=== PATIENT | female | born 1980 | race Caucasian/White ===

== ENCOUNTER 2016-07-27 07:52 | Observation (INO) | payer OTHER ==
[~2016-07-27] VITALS: Ht 160 cm; Wt 70.3 kg
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
--- NOTE | ~2016-07-27 | O ---
[facility] [place] [address] OPERATIVE REPORT Name: CHRIST HERNANDEZ Room #: 404-P [facility] Binu Pascual#: [id number] Admission: 07/27/16 Attend Phys: Shady Cuellar MD Discharge: 07/27/16 Date of : 84 Report #: [id number] THIS REPORT FOR: //name// CC: AILEEN physician/PCP Shady Cuellar DATE OF SERVICE: 07/27/2016 PREOPERATIVE DIAGNOSIS: Right breast abscess. POSTOPERATIVE DIAGNOSIS: Right breast abscess. PROCEDURE: Incision and drainage of right breast abscess. ANESTHESIA: General endotracheal anesthesia. ESTIMATED BLOOD LOSS: 3 mL. IV FLUIDS: See anesthesia record. FINDINGS: Approximately 4 cm abscess per the right inferomedial breast located at approximately the 4 o'clock position 4 cm from the areolar border. The pocket measured approximately 4 cm deep and was consistent with an infected sebaceous cyst. Copious purulence was identified. SPECIMENS TO PATHOLOGY: 1. Skin and soft tissue of right breast lesion for pathology. 2. A culture and sensitivity for aerobic and anaerobic sent off for microbiologic analysis. 3. Cyst wall. INDICATION FOR PROCEDURE: The patient is a 35-year-old female patient with a 3-day history of significant pain and swelling at the inferomedial aspect of the right breast. She was seen in the Emergency Department and ultrasound was obtained, which demonstrated a size abscess cavity in the right breast. This had not had begun this drain spontaneously. General surgery was consulted and detailed discussion of risks and benefits of incision and drainage in the operating room setting was held with the patient. Risks included bleeding, pain, infection, recurrence and need for future procedure, need for further workup to evaluate the lesion even following incision and drainage after the wound is healed. All questions were answered to this patient's satisfaction. Written informed consent was obtained. DESCRIPTION OF PROCEDURE: The patient was brought to the operating room and placed in a supine position. Timeout was taken to verify the patient's identity and to plan the procedure. SCDs were in place on the lower extremities [address] [address] OPERATIVE REPORT Name: CHRIST HERNANDEZ Room #: 404-P [facility] Binu Pascual#: [id number] Admission: 07/27/16 Attend Phys: Shady Cuellar MD Discharge: 07/27/16 Date of : 84 Report #: [id number] bilaterally. Preoperative antibiotics were administered. Anesthesia was induced. The patient was intubated. Right breast was sterilely prepped and draped in standard fashion. Examination demonstrated the large abscess at the 4 o'clock position located approximately 4 cm from the areolar border. Local anesthetic was infiltrated and an incision was made along the inferomedial crease in a circumareolar direction. This was carried through skin and subcutaneous tissue. The abscess pocket was opened and copious malodorous purulence was visualized. Cultures were obtained. The wound was then digitally explored to break loculations. A cyst wall was identified lying in the cavity, which gave evidence that this likely was an infected cyst of some type. The cyst wall was removed as much as possible without causing undue bleeding. This was taken down using a Shital clamp as well as abraded away from the wall of the abscess cavity using a laparotomy sponge. The wound was then irrigated with copious sterile saline and suctioned clear. The cyst wall had been passed off as its own specimen. A ___ of skin and soft tissue along the edge of the wound was obtained as a specimen for pathology to evaluate for potential malignant involvement. Electrocautery was utilized for hemostasis at the wound edges. The wound was then packed with 2 inch Nu Gauze. Sterile dressing was applied superficially. Further local anesthetic had been infiltrated along the edges of the wound as well to aid with postoperative discomfort. Once sterile dressing had been applied, the case was ended, all instrumentation had been extracted and accounted for. All counts were correct per nurse report. The patient was extubated and taken to the postoperative care unit in stable condition. By: 25 51 Shady Cuellar MD /radha
--- NOTE | ~2016-07-27 | S ---
[facility] [place] [address] SURGICAL PATH RPT PROCEDURE Name: CHRIST RIVERA Room #: 404-P [facility] Binu Pascual#: [id number] Admission: 07/27/16 Date of : 84 Discharge: 07/27/16 Report #: [id number] Path Case #: [id number] PATHOLOGY REPORT COLLECTION DATE: 07/27/2016 RECEIVED DATE: 07/27/2016 SUBMITTING PHYS: Dr. Shady Cuellar OTHER PHYS: SPECIMEN(S) RECEIVED: A.Skin and soft tissue right breast lesion B.Right breast cyst capsule * * * * * * * * * * * * FINAL DIAGNOSIS: A. Skin and soft tissue right breast lesion, punch biopsy: - Moderate perivascular chronic inflammation and focal acute inflammation in the deep subcutaneous tissue. - Overlying skin showing reactive changes. - Negative for malignancy. B. Right breast cyst capsule, removal: - Dense fibrous tissue compatible with cystic space along with acellular keratinous debris. - Negative for atypia or malignancy. COMMENT: Focal collection of marked acute inflammatory cells is present in the deepest part of the punch biopsy tissue. Clinical history of breast abscess is noted. Part A Co-review: Dr. Lorrie John (IUV:mgr; d/t: 07/28/16) PATHOLOGIST: Zayra Felipe M.D. REPORT ELECTRONICALLY SIGNED BY: Zayra Felipe M.D. DATE/TIME: 07/28/2016 16:16 * * * * * * * * * * * * GROSS PATHOLOGY: A. Received in formalin labeled "Christ Rivera - skin and soft tissue right breast lesion," is a 1.3 x 0.2 x 0.4 cm ellipse of skin displaying a mckeon, wrinkled, and granular epidermal surface. The margins are inked black. The specimen is sectioned into 6 pieces and entirely submitted in cassettes A1 through A2, with the tips placed in cassette A2. B. Received in formalin labeled "Christ Rivera - right breast cyst capsule," is a 5.0 x 3.3 x 1.0 cm aggregate of blood-tinged, [address] [place] [address] SURGICAL PATH RPT PROCEDURE Name: CHRIST RIVERA Room #: 404-P [facility] M.R.#: [id number] Admission: 07/27/16 Date of : 84 Discharge: 07/27/16 Report #: [id number] Path Case #: [id number] white-mckeon, friable, and capsular soft tissue. The specimen is sectioned and representatively submitted in cassette B1. (TTL; 07/27/2016) CLINICAL HISTORY: Right breast abscess INITIAL CPT CODE(S): A; 47029 B; 82301 Professional services performed by [facility] at [facility] [address] [place] [address] Technical services performed by [facility] at [address] [place] [address]., [address], [place] [address]. [facility] [address] [place] [address] PHONE: [phone] DIRECTOR: Reddy Ramos M.D. * * * END OF REPORT * * *
[2016-07-27 07:55] VITALS: BP 130/86
[2016-07-27 09:36] LABS: BASOPHILS 0.5 % (0.0-2.0); HEMOGLOBIN 12.1 gm/dL (12.0-15.0); LYMPHOCYTES 10.5 % (24.0-44.0); MCH 25.9 pg (26.0-34.0); MCHC 32.6 g/dL (28.0-37.0); MCV 79.5 fL (80.0-100.0); MONOCYTES 3.9 % (1.0-8.0); PLATELET COUNT 300 thou/uL (150-400); POLYS 84.1 % (36.0-66.0); RBC 4.65 mil/uL (4.20-5.00); RDW 14.1 % (10.5-14.5); WBC 11.9 thou/uL (4.0-11.0)
[2016-07-27 09:37] LABS: MANUAL DIFF NO
[2016-07-27 09:41] LABS: CALCIUM 8.7 mg/dL (8.5-10.1); CREATININE 0.6 mg/dL (0.6-1.3); POTASSIUM 4.1 mmol/L (3.5-5.1)
[2016-07-27 10:31] VITALS: BP 107/70
[2016-07-27 13:41] VITALS: BP 107/70
== END 2016-07-27 17:51 | disposition home or self-care (01) ==
LOC: ER 07:52 → EROBS 08:43 → 4N 10:07
PROVIDERS: Emergency Medicine
DX: N61.1 Abscess of the breast and nipple (principal)
CPT/HCPCS: 50010; 50101; 50403; 62110; 62900; 70005